=== PATIENT | female | born 1985 | race Caucasian/White ===

== ENCOUNTER 2016-05-09 10:57 | Observation (INO) | payer OTHER ==
[~2016-05-09 10:57] MED LIST: FAMO40TA72 PO; SERXR300 PO
[2016-05-09 11:55] LABS: Mean Corpuscular Hemoglobin 27.7 pg (27.0-35.0)
[2016-05-09] MEDS ORDERED: Lactated Ringer's 1,000 ML IV SCH (11:58)
[2016-05-09] MEDS ORDERED: Penicillin G K Inj 5,000,000 UNITS in Dextrose 5% Minibag Plus 100 ML IV ONE (12:00)
--- NOTE | 2016-05-09 12:04 | PCM.HPOB ---
Subjective Date of Service: May 09, 2016 Referring Provider: Admitting Physician: Tamica Espinal MD Primary Care Physician: Manisha Rice MD Attending Physician: Tamica Espinal MD Chief Complaint Leaking fluid History of Present History of Present Illness 30 Y/O EDUARDO 05/18/16 by 25 weeks US (unknown LMP) complicated with: 1. Late care initiated at 37 weeks. 2. Previous CD X3 3. Morbid obesity BMI 48 4. Sever anemia , repeat H/H improving. 5. GBS UTI. 6. MJ use. 7. Bipolar /PTSD 8. Thyroid nodule 9. BC: desires T.L signed consent 05/01/16 10 . suspected macrosomia Patient care was transferred to the for high BMI with planned repeat CD on 05/11/2016 at . Patient presented today with leakage of fluid started at 9:00 am clear fluid and SROM confirmed by ROM plus test and patient continued to leak since. No contractions. No vaginal bleeding. Good movements. Patient states she last ate at 8:00 am chips and orange juice. Past Medical History Obstetrical History: G1: 2002 Term , epidural, 8 lb . G2: 2005 Term , epidural, 8 lb 10 oz. G3: 2006 Term(37 w2d) , epidural G4: 2008 D&C G5: 2010 PCD at 38 weeks for placenta previa , 7 lb G6: 2011 D&C G7: 10/02/13 RCD at 39 weeks. 7lb 12 oz G8: 12/09/2014 RCD at 38 weeks 7lb 14 oz. Gynecologic History: LMP: unknown. Medical History: 1. Late care initiated at 37 weeks. 2. Previous CD X3 3. Morbid obesity BMI 48 4. Sever anemia 5. GBS UTI. 6. MJ use. 7. Bipolar /PTSD 8. Thyroid nodule 9. BC: desires T.L signed consent 05/01/16 10 . suspected macrosomia Surgical History: CD X3 D&C X2 Cholecystectomy Tonsillectomy Social History: Hx Tobacco Use: No Hx Alcohol Use: No Hx Substance Use: Yes (MJ ) Allergy Coded Allergies: No Known Allergies (Verified Allergy, Unknown, 12/17/14) Exam Vital Signs 128/74 99 18 35.5 Exam 140 moderate variability positive accelerations and no decelerations, category 1 Objective rare contractions, one or less contractions per 10 minutes, patient denies feeling them. Constitutional: Well-developed HEENT: Atraumatic Lungs: Clear to Auscultation Heart: Regular Rate/Rhythm, Normal S1, Normal S2 Abdomen: Gravid Extremities: Pulses Palpable x4 Neurological/Psychiatric: Alert, Oriented X3 Additional Information cervix 0.5 cm/50%/-5/posterior. Labs/Diagnostics Maternal Blood Type: A (positive ) Additional Information HepBsAg: non-reactive HIV: non-reactive VDRL: non-reactive Rubella: immune. GC/CT screen negative 04/28/16 [facility] screen : too late to care. GBS: positive in urine. DM screen: WNL , 122 at 37 weeks Pap smear 05/01/16 WNL, HPV negative, positive for [place]. 05/01/16 labs: Hgb A1c 5.7 Hgb 9.5 . Hct 29% CMP WNL except for elevated Alkaline phosphates 165 ( Normal range 33-115) Laboratory Tests 72 Hours Test 05/09/16 11:33 05/09/16 11:43 Urine Opiates Screen Negative Urine Methadone Screen Negative Urine Barbiturates Screen Negative Urine Amphetamines Screen Negative Urine Benzodiazepines Screen Negative Urine Cocaine Metabolite Screen Negative Urine Cannabinoids Screen Positive White Blood Count 10.0th/mm3 (3.8-10.1) Red Blood Count 3.86mil/mm3 (3.90-5.20) Hemoglobin 10.7g/dL (12.0-15.6) Hematocrit 32.8% (35.0-46.0) Mean Corpuscular Volume 85.0fL (81-100) Mean Corpuscular Hemoglobin 27.7pg (27.0-35.0) Mean Corpuscular Hemoglobin Concent 32.6% (32.0-37.0) Red Cell Distribution Width 15.7% (12.3-15.4) Platelet Count 261bil/L (150-400) OB Intrapartum Assessment/Plan Assessment 30 Y/O at 38 w5d EDUARDO 05/18/16 by 25 weeks US (unknown LMP) PROM at 9:00 (05/09/16) no signs of active labor Category 1 heart tone tracing complicated with: 1. Late care initiated at 37 weeks. 2. Previous CD X3 3. Morbid obesity BMI 48 4. Sever anemia 5. GBS UTI. 6. MJ use. 7. Bipolar /PTSD 8. Thyroid nodule 9. BC: desires T.L signed consent 05/01/16 10 . suspected macrosomia Pain Management: Pencillin G 5 000, 000 unit started IV fluid Transfer of care was accepted by Dr. Deanna Wolf. Tamica Espinal MD May 09, 2016 12:04
[2016-05-09] MEDS ORDERED: Penicillin G K 5,000,000 Units Inj ONE (12:14)
[2016-05-09] MEDS ORDERED: 0.9% Sodium Chloride 100 ML IV ONE (12:14)
--- NOTE | 2016-05-09 12:54 | PCM.DC.OB ---
Obstetrical Discharge Summary Date of Service May 09, 2016 Date of hospital admission May 09, 2016 at 11:24 Date of Discharge: May 09, 2016 Providers Admitting Physician: Tamica Espinal MD Primary Care Physician: Manisha Rice MD Attending Physician: Tamica Espinal MD Diagnosis at Time of Discharge PROM at 9:00 (05/09/16) no signs of active labor Category 1 heart tone tracing Problems: Brief History and Physical: 30 Y/O EDUARDO 05/18/16 by 25 weeks US (unknown LMP) complicated with: 1. Late care initiated at 37 weeks. 2. Previous CD X3 3. Morbid obesity BMI 48 4. Sever anemia , repeat H/H improving. 5. GBS UTI. 6. MJ use. 7. Bipolar /PTSD 8. Thyroid nodule 9. BC: desires T.L signed consent 05/01/16 10 . suspected macrosomia Patient care was transferred to the for high BMI with planned repeat CD on 05/11/2016 at . Patient presented today with leakage of fluid started at 9:00 am clear fluid and SROM confirmed by ROM plus test and patient continued to leak since. No contractions. No vaginal bleeding. Good movements. Patient states she last ate at 8:00 am chips and orange juice. Hospital Course: Past Medical History Obstetrical History: G1: 2002 Term , epidural, 8 lb . G2: 2005 Term , epidural, 8 lb 10 oz. G3: 2006 Term(37 w2d) , epidural G4: 2008 D&C G5: 2010 PCD at 38 weeks for placenta previa , 7 lb G6: 2011 D&C G7: 10/02/13 RCD at 39 weeks. 7lb 12 oz G8: 12/09/2014 RCD at 38 weeks 7lb 14 oz. Gynecologic History: LMP: unknown. Medical History: 1. Late care initiated at 37 weeks. 2. Previous CD X3 3. Morbid obesity BMI 48 4. Sever anemia 5. GBS UTI. 6. MJ use. 7. Bipolar /PTSD 8. Thyroid nodule 9. BC: desires T.L signed consent 05/01/16 10 . suspected macrosomia Surgical History: CD X3 D&C X2 Cholecystectomy Tonsillectomy Social History: Hx Tobacco Use: No Hx Alcohol Use: No Hx Substance Use: Yes (MJ ) Allergy Coded Allergies: No Known Allergies (Verified Allergy, Unknown, 12/17/14) OB Exam Exam Vital Signs 128/74 99 18 35.5 Exam 140 moderate variability positive accelerations and no decelerations, category 1 Objective rare contractions, one or less contractions per 10 minutes, patient denies feeling them. Constitutional: Well-developed HEENT: Atraumatic Lungs: Clear to Auscultation Heart: Regular Rate/Rhythm, Normal S1, Normal S2 Abdomen: Gravid Extremities: Pulses Palpable x4 Neurological/Psychiatric: Alert, Oriented X3 Additional Information cervix 0.5 cm/50%/-5/posterior. Labs/Diagnostics Labs/Diagnostics Maternal Blood Type: A (positive ) Additional Information HepBsAg: non-reactive HIV: non-reactive VDRL: non-reactive Rubella: immune. GC/CT screen negative 04/28/16 [facility] screen : too late to care. GBS: positive in urine. DM screen: WNL , 122 at 37 weeks Pap smear 05/01/16 WNL, HPV negative, positive for [place]. 05/01/16 labs: Hgb A1c 5.7 Hgb 9.5 . Hct 29% CMP WNL except for elevated Alkaline phosphates 165 ( Normal range 33-115) Laboratory Tests 72 Hours Test 05/09/16 11:33 05/09/16 11:43 Urine Opiates Screen Negative Urine Methadone Screen Negative Urine Barbiturates Screen Negative Urine Amphetamines Screen Negative Urine Benzodiazepines Screen Negative Urine Cocaine Metabolite Screen Negative Urine Cannabinoids Screen Positive White Blood Count 10.0th/mm3 (3.8-10.1) Red Blood Count 3.86mil/mm3 (3.90-5.20) Hemoglobin 10.7g/dL (12.0-15.6) Hematocrit 32.8% (35.0-46.0) Mean Corpuscular Volume 85.0fL (81-100) Mean Corpuscular Hemoglobin 27.7pg (27.0-35.0) Mean Corpuscular Hemoglobin Concent 32.6% (32.0-37.0) Red Cell Distribution Width 15.7% (12.3-15.4) Platelet Count 261bil/L (150-400) OB Intrapartum Assessment/Plan OB Intrapartum Assessment/Plan Assessment 30 Y/O at 38 w5d EDUARDO 3/17/17 by 25 weeks US (unknown LMP) PROM at 9:00 (05/09/16) no signs of active labor Category 1 heart tone tracing complicated with: 1. Late care initiated at 37 weeks. 2. Previous CD X3 3. Morbid obesity BMI 48 4. Sever anemia 5. GBS UTI. 6. MJ use. 7. Bipolar /PTSD 8. Thyroid nodule 9. BC: desires T.L signed consent 05/01/16 10 . suspected macrosomia Pain Management: Pencillin G 5 000, 000 unit started IV fluid Transfer of care was accepted by Dr. Deanna Wolf. Tamica Espinal MD Famotidine (Pepcid) 40 Mg Tablet 40 MG PO HS (Reported) Quetiapine Fumarate ER (Seroquel XR) 300 Mg Tabsr 300 MG PO HS (Reported) Disposition Transferred to [facility] Discharge/transfer condition: Guarded Tamica Espinal MD May 09, 2016 12:54
== END 2016-05-09 12:52 | disposition short-term general hospital (02) ==
LOC: FBCO 10:57 → FBC 11:24 → INTOOBSV 11:24
PROVIDERS: ADMIT Obstetrics & Gynecology; ATTEND Obstetrics & Gynecology
DX: O09.33 Supervision of pregnancy with insufficient antenatal care, third trimester (principal); O42.92 Full-term premature rupture of membranes, unspecified as to length of time between rupture and onset of labor; O99.213 Obesity complicating pregnancy, third trimester; O99.013 Anemia complicating pregnancy, third trimester; F31.9 Bipolar disorder, unspecified; F12.90 Cannabis use, unspecified, uncomplicated; E66.01 Morbid (severe) obesity due to excess calories; E04.1 Nontoxic single thyroid nodule; F43.10 Post-traumatic stress disorder, unspecified; Z3A.37 37 weeks gestation of pregnancy; Z68.42 Body mass index [BMI] 45.0-49.9, adult
CPT/HCPCS: 36415; 84112; 85027; 96365; G0463; G0480; J2540